=== PATIENT | female | born 1985 ===

== ENCOUNTER 2017-10-26 00:14 | Inpatient (IN) | payer BC ==
[2017-10-26] MEDS ORDERED: Misoprostol 25 MCG (1/4 of 100 MCG) Tab ONE (06:53)
--- NOTE | 2017-10-26 08:06 | PCM.LDHP ---
L&D History of Present Illness - General Date of Service: 10/26/17 Admit Problem/Dx: Admission Diagnosis/Problem Admission Diagnosis/Problem Source of Information: Patient History Limitations: Reports: No Limitations - History of Present Illness Introduction:: 32-year-old 001 EBONI 10/28/17 estimated gestational age 39 weeks 5 days admitted for induction of labor. GBS negative. No history of MRSA. Previous LEEP in 2010. Tonsillectomy and 86. History of moderate dysplasia and cervix in 2010. Allergy to penicillin. Cervix is 2 cm/40%/soft/posterior/-3/4, ultrasound on 04/24/17 EBONI 10/28/1812 weeks 2 days estimated gestational age that time. Blood type A positive airway screen negative hemoglobin hematocrit on 1714.1/42.8 platelets 270,000. Rubella immune serology nonreactive urine culture mixed angela hepatitis B surface antigen and HIV negative. GC probe negative hemoglobin hematocrit on 08/17/1811.9/38.2 platelets 219,000. One hour OB glucose screen 146 3 hour glucose tolerance test 84/128/119/105 within normal limits. GBS negative. Improves with: Reports: None Worsens with: Reports: None Associated Symptoms: Reports: N - Related Data Allergies/Adverse Reactions: Allergies Allergy/AdvReac Type Severity Reaction Status Date / Time penicillin Allergy Hives Verified 04/02/15 19:59 Home Medications: Home Meds Acetaminophen [Tylenol] 650 mg PO Q6H PRN #50 tablet 04/05/15 [Rx] Benzocaine/Menthol [[facility] [place]] 56 gm TOP ASDIRECTED PRN #1 canister 04/05/15 [Rx] Docusate Sodium [Colace] 100 mg PO BID PRN #50 cap 04/05/15 [Rx] Ibuprofen [Motrin] 200 - 800 mg PO Q6H PRN #50 tablet 04/05/15 [Rx] Simethicone 80 mg PO Q4H PRN #0 tab.chew 04/05/15 [Rx] Past Medical History Other HEENT History: wears glasses : 2 Para: 1 (1001) LMP (Approximate): - Past Surgical History Other Female Surgeries/Procedures: LEEP procedure Social & Family History - Tobacco Use Smoking Status *Q: Never Smoker Second Hand Smoke Exposure: No - Recreational Drug Use Recreational Drug Use: No H&P Review of Systems - Review of Systems: Review Of Systems: See Below General: Reports: No Symptoms HEENT: Reports: No Symptoms Pulmonary: Reports: No Symptoms Cardiovascular: Reports: No Symptoms Gastrointestinal: Reports: No Symptoms Genitourinary: Reports: No Symptoms Musculoskeletal: Reports: No Symptoms Skin: Reports: No Symptoms Psychiatric: Reports: No Symptoms Neurological: Reports: No Symptoms Hematologic/Lymphatic: Reports: No Symptoms Immunologic: Reports: No Symptoms L&D Exam - Exam Exam: See Below - OB Specific Fundal Height In cm: 38 Movement: Active Heart Tones: Present Heart Tones per Min: 135 Heart Rate (FHR) Variability: Moderate (6-25 bmp) Presentation: Vertex - Joshi Score Joshi Score Cervix Position: Posterior Joshi Score Consistency: Soft Joshi Score Effacement: 31-50% Joshi Score Dilation: 1-2 cm Joshi Score 's Station: -3 Joshi Score Total: 4 - Exam General: Alert, Oriented HEENT: Conjunctiva Clear, Mucosa Moist & [place], PERRLA Neck: Supple, Trachea Midline Lungs: Clear to Auscultation, Normal Respiratory Effort Cardiovascular: Regular Rate, Regular Rhythm GI/Abdominal Exam: Normal Bowel Sounds, Soft, Non-Tender Genitourinary: Normal external exam, Normal bimanual exam, Normal speculum exam Extremities: Normal Inspection, Normal Range of Motion, Non-Tender, No Pedal Edema, Normal Capillary Refill Skin: Warm, Dry, Intact Neurological: Reflexes Equal Bilateral Psychiatric: Alert, Normal Affect, Normal Mood - Problem List (1) 39 weeks gestation of SNOMED Code(s): 60171063 ICD Code: Z3A.39 - 39 WEEKS GESTATION OF Status: Acute Current Visit: Yes Problem List Initiated/Reviewed/Updated: No Assessment/Plan Comment:: Plan induction of labor and delivery.
[2017-10-26] MEDS ORDERED: Ondansetron 4 MG/2 ML SDV IVPUSH PRN (08:21)
[2017-10-26] MEDS ORDERED: Nalbuphine 20 MG/1 ML Amp IVPUSH PRN (08:21)
[2017-10-26] MEDS ORDERED: Sodium Chloride 0.9% 10 ML Syringe FLUSH PRN (08:21)
[2017-10-26] MEDS ORDERED: Oxytocin/Lactated Ringers 10 UNIT/1,000 ML BAG IV SCH ×2 (08:30→16:15)
[2017-10-26] MEDS ORDERED: diphenhydrAMINE 50 MG/ML SDV IVPUSH PRN (09:57)
[2017-10-26] MEDS ORDERED: fentaNYL 100 MCG/2 ML SDV EPIDUR PRN (09:57)
[2017-10-26] MEDS ORDERED: ePHEDrine 50 MG/ML SDV IVPUSH PRN (09:57)
[2017-10-26] MEDS: Misoprostol 25 MCG (1/4 of 100 MCG) Tab VAG SCH ×3 (11:20→20:54)
--- NOTE | 2017-10-26 12:44 | PCM.SN ---
- Free Text/Narrative Note: Cervix 2 cm, 40% effaced, soft, mid-position Vertex -2. Amnitomy clear fluid performed at 1240. T's Cat I before and after amniotomy.
[2017-10-26] MEDS: Lactated Ringers 1,000 ML IV SCH ×5 (14:34→21:58)
[2017-10-26] MEDS: fentaNYL/Bupivacaine in NS PF 2.5 MCG/ML-0.1% 50 ML Syringe EPIDUR SCH ×3 (15:11→22:29)
--- NOTE | 2017-10-26 15:20 | PCM.PREANE ---
Preanesthetic Assessment - Anesthesia/Transfusion/Family Hx Anesthesia History: Prior Anesthesia Without Reaction Family History of Anesthesia Reaction: No Transfusion History: No Prior Transfusion(s) - Review of Systems General: No Symptoms Pulmonary: No Symptoms Cardiovascular: No Symptoms Gastrointestinal: No Symptoms Neurological: No Symptoms Other: Reports: None - Physical Assessment Pulse: 111 O2 Sat by Pulse Oximetry: 97 Respiratory Rate: 18 Blood Pressure: 114/79 Temperature: 36.5 C Vital Signs: Last Vital Signs Temp 36.5 C 10/26/17 08:19 Pulse 111 H 10/26/17 08:19 Resp 18 10/26/17 08:19 BP 114/79 10/26/17 08:19 Pulse Ox Height: 1.7 m Weight: 92.703 kg ASA Class: 2 Mental Status: Alert & Oriented x3 Airway Class: Mallampati = 1 Dentition: Reports: Normal Dentition ROM/Head Extension: Full Lungs: Clear to Auscultation, Normal Respiratory Effort Cardiovascular: Regular Rate, Regular Rhythm - Lab Values: Laboratory Last Values WBC 7.51 K/mm3 (3.98-10.04) 10/26/17 09:24 RBC 3.85 M/mm3 (3.98-5.22) L 10/26/17 09:24 Hgb 12.2 gm/L (11.2-15.7) 10/26/17 09:24 Hct 36.6 % (34.1-44.9) 10/26/17 09:24 MCV 95.1 fl (79.4-94.8) H 10/26/17 09:24 MCH 31.7 pg (25.6-32.2) 10/26/17 09:24 MCHC 33.3 g/dl (32.2-35.5) 10/26/17 09:24 RDW Std Deviation 47.0 fL (36.4-46.3) H 10/26/17 09:24 Plt Count 202 K/mm3 (182-369) 10/26/17 09:24 MPV 10.2 fl (9.4-12.3) 10/26/17 09:24 - Allergies Allergies/Adverse Reactions: Allergies Allergy/AdvReac Type Severity Reaction Status Date / Time penicillin Allergy Hives Verified 04/02/15 19:59 - Anesthesia Plan Pre-Op Medication Ordered: None - Acknowledgements Anesthesia Type Planned: Epidural Pt an Appropriate Candidate for the Planned Anesthesia: Yes Alternatives and Risks of Anesthesia Discussed w Pt/Guardian: Yes Pt/Guardian Understands and Agrees with Anesthesia Plan: Yes PreAnesthesia Questionnaire - Past Health History Medical/Surgical History: Denies Medical/Surgical History Other HEENT History: wears glasses Gastrointestinal History: Reports: [employer] History: Reports: - Past Surgical History HEENT Surgical History: Reports: Tonsillectomy Other HEENT Surgeries/Procedures: LEEP, [place] teeth Other Female Surgeries/Procedures: LEEP procedure - SUBSTANCE USE Smoking Status *Q: Never Smoker Second Hand Smoke Exposure: No Recreational Drug Use History: No - HOME MEDS Home Medications: Home Meds PNV95/Ferrous Fumarate/FA [ Tablet] 1 each PO DAILY 10/26/17 [History] - CURRENT (IN HOUSE) MEDS Current Meds: Current Medications Diphenhydramine HCl (Benadryl) 25 mg IVPUSH Q6H PRN PRN Reason: Itching Ephedrine Sulfate (Ephedrine Sulfate) 5 mg IVPUSH ASDIRECTED PRN PRN Reason: HYPOTENTSION Fentanyl (Sublimaze) 100 mcg EPIDUR Q3H PRN PRN Reason: PAIN Last Admin: 10/26/17 15:11 Dose: 100 mcg Fentanyl/Bupivacaine HCl (Fentanyl/Bupivacaine/Ns 2.5 Mcg-0.1% 50 Ml) 50 ml EPIDUR ASDIRECTED [facility] Last Admin: 10/26/17 15:11 Dose: 50 ml Lactated Ringer's (Ringers, Lactated) 1,000 mls @ 100 mls/hr IV ASDIRECTED [facility] Last Admin: 10/26/17 14:34 Dose: 999 mls/hr Oxytocin/Lactated Ringer's (Pitocin In Lr 10 Units/1,000 Ml) 10 unit in 1,000 mls @ 500 mls/hr IV .CONTINUOUS [facility] Misoprostol (Cytotec) 25 mcg VAG Q3H [facility] Last Admin: 10/26/17 11:20 Dose: 25 mcg Nalbuphine HCl (Nubain) 10 mg IVPUSH Q2H PRN PRN Reason: Pain (moderate 4-6) Ondansetron HCl (Zofran) 4 mg IVPUSH Q4H PRN PRN Reason: Nausea/Vomiting Sodium Chloride (Saline Flush) 10 ml FLUSH ASDIRECTED PRN PRN Reason: Keep Vein Open Discontinued Medications Misoprostol (Cytotec) Confirm Administered Dose 25 mcg .ROUTE .STK-MED ONE Stop: 10/26/17 06:54 Last Admin: 10/26/17 07:55 Dose: 25 mcg
--- NOTE | 2017-10-26 16:27 | PCM.SN ---
- Free Text/Narrative Note: Cervix 2-3, 50, soft, mid, vertex -3, pitocin started at 1600 and after epidural was placed.
--- NOTE | 2017-10-27 00:39 | PCM.DEL ---
L & D Note - General Info Date of Service: 10/27/17 Mother's Due Date: 10/28/17 - Delivery Note Labor: Augmented by ARM, Augmented by Oxytocin Cervical Ripening Method: Misoprostil (25 mcg x2) Delivery Outcome: Livebirth (Female liveborn Thursday10/27/17 at 0015 hours LOP under epidural anesthesia over no episiotomy with second-degree laceration weight 3270 g/7 pounds 3.3 ounces Apgars 7/9) Delivery Method: Spontaneous Vaginal Delivery-Single Delivery Mode: Spontaneous Type of Forceps Used: NA Presentation: Left Occiput Posterior (LOP) Nuchal Cord: None Prep: Povidone-Iodine (Betadine Anesthesia Type: Epidural Amniotic Fluid Description: Clear Episiotomy Type: None Laceration: 2nd Degree (Midline) Suture type: Other (3-0 Monocryl 2) Suture size: 3-0 Placenta: Intact, Spontaneous (Thursday10/27/17 at 0018 hours central cord insertion intact examined discarded) Cord: 3 Vessels Estimated Blood Loss: 250 Resuscitation Needed: No [place]: Suctioned, Bulb Syringe, Stimulated, Warmed, [place] Used, Warmer Used Provider: Melo Rodriguez Score 1 min: 7 Score 5 min: 9 - Patient Data Vitals - Most Recent: Last Vital Signs Temp 97.7 F 10/26/17 15:20 Pulse 111 H 10/26/17 15:20 Resp 18 10/26/17 15:20 BP 114/79 10/26/17 15:20 Pulse Ox 97 10/26/17 15:20 Weight - Most Recent: 204 lb 6 oz I&O - Last 24 Hours: Intake & Output 10/26/17 10/26/17 10/27/17 14:59 22:59 06:59 Intake Total 120 Balance 120 Lab Results Last 24 Hours: Laboratory Results - last 24 hr 10/26/17 Range/Units 09:24 WBC 7.51 (3.98-10.04) K/mm3 RBC 3.85 L (3.98-5.22) M/mm3 Hgb 12.2 (11.2-15.7) gm/L Hct 36.6 (34.1-44.9) % MCV 95.1 H (79.4-94.8) fl MCH 31.7 (25.6-32.2) pg MCHC 33.3 (32.2-35.5) g/dl RDW Std Deviation 47.0 H (36.4-46.3) fL Plt Count 202 (182-369) K/mm3 MPV 10.2 (9.4-12.3) fl Med Orders - Current: Current Medications Diphenhydramine HCl (Benadryl) 25 mg IVPUSH Q6H PRN PRN Reason: Itching Ephedrine Sulfate (Ephedrine Sulfate) 5 mg IVPUSH ASDIRECTED PRN PRN Reason: HYPOTENTSION Fentanyl (Sublimaze) 100 mcg EPIDUR Q3H PRN PRN Reason: PAIN Last Admin: 10/26/17 15:11 Dose: 100 mcg Fentanyl/Bupivacaine HCl (Fentanyl/Bupivacaine/Ns 2.5 Mcg-0.1% 50 Ml) 50 ml EPIDUR ASDIRECTED [facility] Last Admin: 10/26/17 22:29 Dose: 50 ml Lactated Ringer's (Ringers, Lactated) 1,000 mls @ 100 mls/hr IV ASDIRECTED [facility] Last Admin: 10/26/17 21:58 Dose: 999 mls/hr Oxytocin/Lactated Ringer's (Pitocin In Lr 10 Units/1,000 Ml) 10 unit in 1,000 mls @ 500 mls/hr IV .CONTINUOUS [facility] Oxytocin/Lactated Ringer's (Pitocin In Lr 10 Units/1,000 Ml) 10 unit in 1,000 mls @ 12 mls/hr IV TITRATE [facility]; Protocol Last Titration: 10/26/17 20:54 Dose: 10 munits/min, 60 mls/hr Misoprostol (Cytotec) 25 mcg VAG Q3H [facility] Last Admin: 10/26/17 20:54 Dose: Not Given Nalbuphine HCl (Nubain) 10 mg IVPUSH Q2H PRN PRN Reason: Pain (moderate 4-6) Ondansetron HCl (Zofran) 4 mg IVPUSH Q4H PRN PRN Reason: Nausea/Vomiting Sodium Chloride (Saline Flush) 10 ml FLUSH ASDIRECTED PRN PRN Reason: Keep Vein Open Discontinued Medications Misoprostol (Cytotec) Confirm Administered Dose 25 mcg .ROUTE .STK-MED ONE Stop: 10/26/17 06:54 Last Admin: 10/26/17 07:55 Dose: 25 mcg - Problem List & Annotations (1) 39 weeks gestation of SNOMED Code(s): 37572795 Code(s): Z3A.39 - 39 WEEKS GESTATION OF Status: Acute Current Visit: Yes (2) Occiput posterior presentation of fetus SNOMED Code(s): 60256975 Code(s): O64.0XX0 - OBSTRUCTED LABOR DUE TO INCMPL ROTATION OF HEAD, UNSP Status: Acute Current Visit: Yes Qualifiers: Fetus number: single or unspecified fetus Qualified Code(s): O64.0XX0 - Obstructed labor due to incomplete rotation of head, not applicable or unspecified (3) Second degree laceration of perineum, delivered, current hospitalization SNOMED Code(s): 796870944 Code(s): O70.1 - SECOND DEGREE PERINEAL LACERATION DURING DELIVERY Status: Acute Current Visit: No - Problem List Review Problem List Initiated/Reviewed/Updated: No - My Orders Last 24 Hours: My Active Orders 10/26/17 08:21 Nalbuphine [Nubain] 10 mg IVPUSH Q2H PRN Ondansetron [Zofran] 4 mg IVPUSH Q4H PRN Sodium Chloride 0.9% [Saline Flush] 10 ml FLUSH ASDIRECTED PRN Resuscitation Status Routine 10/26/17 08:22 Activity as Tolerated [RC] PFP Communication Order [RC] ASDIRECTED Heart Tones [RC] ASDIRECTED Notify Provider [RC] PFP Notify Provider [RC] PRN Peripheral IV Care [RC] . DIRECTED Vital Signs [RC] PER UNIT ROUTINE Electronic Heart Tones Ext w TOCO [WOMSER] Routine Electronic Heart Tones Internal [WOMSER] Per Unit Routine Peripheral IV Insertion Adult [OM.PC] Routine 10/26/17 08:30 Lactated Ringers [Ringers, Lactated] 1,000 ml IV ASDIRECTED Misoprostol [Cytotec] 25 mcg VAG Q3H Oxytocin/Lactated Ringers [Pitocin in LR 10 Units/1,000 ML] 10 unit in 1,000 ml IV .CONTINUOUS 10/26/17 16:15 Oxytocin/Lactated Ringers [Pitocin in LR 10 Units/1,000 ML] 10 unit in 1,000 ml IV TITRATE 10/26/17 Lunch Regular Diet [DIET] - Plan Plan:: Plan induction of labor and delivery.
[2017-10-27] MEDS ORDERED: Acetaminophen 325 MG Tab PO PRN (00:47)
[2017-10-27] MEDS ORDERED: Docusate Sodium 100 MG Cap PO PRN (00:47)
[2017-10-27] MEDS ORDERED: Bupivacaine 0.25% 10 ML SDV ONE (01:00)
[2017-10-27] MEDS ORDERED: Benzocaine/Menthol 20%-0.5% Spray 56 GM Canister TOP PRN (02:27)
[2017-10-27] MEDS ORDERED: Witch Hazel Medicated Pads 100/Jar TOP PRN (02:27)
[2017-10-27] MEDS: Ibuprofen 600 MG Tab PO PRN ×4 (02:34→16:17)
--- NOTE | 2017-10-27 07:56 | PCM48HPAN ---
Post Anesthesia Note - EVALUATION WITHIN 48HRS OF ANESTHETIC Vital Signs in Normal Range: Yes Patient Participated in Evaluation: Yes Respiratory Function Stable: Yes Airway Patent: Yes Cardiovascular Function Stable: Yes Hydration Status Stable: Yes Pain Control Satisfactory: Yes Nausea and Vomiting Control Satisfactory: Yes Mental Status Recovered: Yes (no complaints- with baby) Pulse Rate: 65 Resp Rate: 16 Temperature: 98.8 F Blood Pressure: 102/64
[2017-10-27] MEDS ORDERED: Prenatal Multivitamin with Calcium/Folic Acid/Iron Tab PO SCH (09:00)
[2017-10-28 06:09] VITALS: BP 104/59
--- NOTE | 2017-10-28 08:12 | PCM.DCSUM1 ---
Discharge Summary - Hospital Course Free Text/Narrative:: [facility] LIVE L/D Delivery Note Patient Name: SHERI VILLASEÑOR Date of : 89 Patient Status: Inpatient Attending Provider: Melo Rodriguez Date: 10/27/17 00:33 Initialization Date: 10/27/17 00:33 L & D Note - General Info Date of Service: 10/27/17 Mother's Due Date: 10/28/17 - Delivery Note Labor: Augmented by ARM, Augmented by Oxytocin Cervical Ripening Method: Misoprostil (25 mcg x2) Delivery Outcome: Livebirth (Female liveborn Thursday10/27/17 at 0015 hours LOP under epidural anesthesia over no episiotomy with second-degree laceration weight 3270 g/7 pounds 3.3 ounces Apgars 7/9) Delivery Method: Spontaneous Vaginal Delivery-Single Delivery Mode: Spontaneous Type of Forceps Used: NA Presentation: Left Occiput Posterior (LOP) Nuchal Cord: None Prep: Povidone-Iodine (Betadine Anesthesia Type: Epidural Amniotic Fluid Description: Clear Episiotomy Type: None Laceration: 2nd Degree (Midline) Suture type: Other (3-0 Monocryl 2) Suture size: 3-0 Placenta: Intact, Spontaneous (Thursday10/27/17 at 0018 hours central cord insertion intact examined discarded) Cord: 3 Vessels Estimated Blood Loss: 250 Resuscitation Needed: No : Suctioned, Bulb Syringe, Stimulated, Warmed, [place] Used, Warmer Used Provider: Melo Rodriguez Score 1 min: 7 Score 5 min: 9 - Patient Data Vitals - Most Recent: Last Vital Signs Temp 97.7 F 10/26/17 15:20 Pulse 111 H 10/26/17 15:20 Resp 18 10/26/17 15:20 BP 114/79 10/26/17 15:20 Pulse Ox 97 10/26/17 15:20 Weight - Most Recent: 204 lb 6 oz I&O - Last 24 Hours: Intake & Output 10/26/17 10/26/17 10/27/17 14:59 22:59 06:59 Intake Total 120 Balance 120 Lab Results Last 24 Hours: Laboratory Results - last 24 hr 10/26/17 Range/Units 09:24 WBC 7.51 (3.98-10.04) K/mm3 RBC 3.85 L (3.98-5.22) M/mm3 Hgb 12.2 (11.2-15.7) gm/L Hct 36.6 (34.1-44.9) % MCV 95.1 H (79.4-94.8) fl MCH 31.7 (25.6-32.2) pg MCHC 33.3 (32.2-35.5) g/dl RDW Std Deviation 47.0 H (36.4-46.3) fL Plt Count 202 (182-369) K/mm3 MPV 10.2 (9.4-12.3) fl Med Orders - Current: Current Medications Diphenhydramine HCl (Benadryl) 25 mg IVPUSH Q6H PRN PRN Reason: Itching Ephedrine Sulfate (Ephedrine Sulfate) 5 mg IVPUSH ASDIRECTED PRN PRN Reason: HYPOTENTSION Fentanyl (Sublimaze) 100 mcg EPIDUR Q3H PRN PRN Reason: PAIN Last Admin: 10/26/17 15:11 Dose: 100 mcg Fentanyl/Bupivacaine HCl (Fentanyl/Bupivacaine/Ns 2.5 Mcg-0.1% 50 Ml) 50 ml EPIDUR ASDIRECTED RODRIGO Last Admin: 10/26/17 22:29 Dose: 50 ml Lactated Ringer's (Ringers, Lactated) 1,000 mls @ 100 mls/hr IV ASDIRECTED RODRIGO Last Admin: 10/26/17 21:58 Dose: 999 mls/hr Oxytocin/Lactated Ringer's (Pitocin In Lr 10 Units/1,000 Ml) 10 unit in 1,000 mls @ 500 mls/hr IV .CONTINUOUS RODRIGO Oxytocin/Lactated Ringer's (Pitocin In Lr 10 Units/1,000 Ml) 10 unit in 1,000 mls @ 12 mls/hr IV TITRATE RODRIGO; Protocol Last Titration: 10/26/17 20:54 Dose: 10 munits/min, 60 mls/hr Misoprostol (Cytotec) 25 mcg VAG Q3H RODRIGO Last Admin: 10/26/17 20:54 Dose: Not Given Nalbuphine HCl (Nubain) 10 mg IVPUSH Q2H PRN PRN Reason: Pain (moderate 4-6) Ondansetron HCl (Zofran) 4 mg IVPUSH Q4H PRN PRN Reason: Nausea/Vomiting Sodium Chloride (Saline Flush) 10 ml FLUSH ASDIRECTED PRN PRN Reason: Keep Vein Open Discontinued Medications Misoprostol (Cytotec) Confirm Administered Dose 25 mcg .ROUTE .STK-MED ONE Stop: 10/26/17 06:54 Last Admin: 10/26/17 07:55 Dose: 25 mcg - Problem List & Annotations (1) 39 weeks gestation of SNOMED Code(s): 98260081 Code(s): Z3A.39 - 39 WEEKS GESTATION OF Status: Acute Current Visit: Yes (2) Occiput posterior presentation of fetus SNOMED Code(s): 08384774 Code(s): O64.0XX0 - OBSTRUCTED LABOR DUE TO INCMPL ROTATION OF HEAD, UNSP Status: Acute Current Visit: Yes Qualifiers: Fetus number: single or unspecified fetus Qualified Code(s): O64.0XX0 - Obstructed labor due to incomplete rotation of head, not applicable or unspecified (3) Second degree laceration of perineum, delivered, current hospitalization SNOMED Code(s): 191969697 Code(s): O70.1 - SECOND DEGREE PERINEAL LACERATION DURING DELIVERY Status: Acute Current Visit: No - Problem List Review Problem List Initiated/Reviewed/Updated: No - My Orders Last 24 Hours: My Active Orders 10/26/17 08:21 Nalbuphine [Nubain] 10 mg IVPUSH Q2H PRN Ondansetron [Zofran] 4 mg IVPUSH Q4H PRN Sodium Chloride 0.9% [Saline Flush] 10 ml FLUSH ASDIRECTED PRN Resuscitation Status Routine 10/26/17 08:22 Activity as Tolerated [RC] PFP Communication Order [RC] ASDIRECTED Heart Tones [RC] ASDIRECTED Notify Provider [RC] PFP Notify Provider [RC] PRN Peripheral IV Care [RC] . DIRECTED Vital Signs [RC] PER UNIT ROUTINE Electronic Heart Tones Ext w TOCO [WOMSER] Routine Electronic Heart Tones Internal [WOMSER] Per Unit Routine Peripheral IV Insertion Adult [OM.PC] Routine 10/26/17 08:30 Lactated Ringers [Ringers, Lactated] 1,000 ml IV ASDIRECTED Misoprostol [Cytotec] 25 mcg VAG Q3H Oxytocin/Lactated Ringers [Pitocin in LR 10 Units/1,000 ML] 10 unit in 1,000 ml IV .CONTINUOUS 10/26/17 16:15 Oxytocin/Lactated Ringers [Pitocin in LR 10 Units/1,000 ML] 10 unit in 1,000 ml IV TITRATE 10/26/17 Lunch Regular Diet [DIET] - Plan Plan:: Plan induction of labor and delivery. HPI Initial Comments: [facility] LIVE L/D Delivery Note Patient Name: SHERI VILLASEÑOR Date of : 89 Patient Status: Inpatient Attending Provider: Melo Rodriguez Date: 10/27/17 00:33 Initialization Date: 10/27/17 00:33 L & D Note - General Info Date of Service: 10/27/17 Mother's Due Date: 10/28/17 - Delivery Note Labor: Augmented by ARM, Augmented by Oxytocin Cervical Ripening Method: Misoprostil (25 mcg x2) Delivery Outcome: Livebirth (Female liveborn Thursday10/27/17 at 0015 hours LOP under epidural anesthesia over no episiotomy with second-degree laceration weight 3270 g/7 pounds 3.3 ounces Apgars 7/9) Infant Delivery Method: Spontaneous Vaginal Delivery-Single Infant Delivery Mode: Spontaneous Type of Forceps Used: NA Presentation: Left Occiput Posterior (LOP) Nuchal Cord: None Prep: Povidone-Iodine (Betadine Anesthesia Type: Epidural Amniotic Fluid Description: Clear Episiotomy Type: None Laceration: 2nd Degree (Midline) Suture type: Other (3-0 Monocryl 2) Suture size: 3-0 Placenta: Intact, Spontaneous (Thursday10/27/17 at 0018 hours central cord insertion intact examined discarded) Cord: 3 Vessels Estimated Blood Loss: 250 Resuscitation Needed: No [place]: Suctioned, Bulb Syringe, Stimulated, Warmed, [place] Used, Warmer Used Provider: Melo Rodriguez Score 1 min: 7 Score 5 min: 9 - Patient Data Vitals - Most Recent: Last Vital Signs Temp 97.7 F 10/26/17 15:20 Pulse 111 H 10/26/17 15:20 Resp 18 10/26/17 15:20 BP 114/79 10/26/17 15:20 Pulse Ox 97 10/26/17 15:20 Weight - Most Recent: 204 lb 6 oz I&O - Last 24 Hours: Intake & Output 10/26/17 10/26/17 10/27/17 14:59 22:59 06:59 Intake Total 120 Balance 120 Lab Results Last 24 Hours: Laboratory Results - last 24 hr 10/26/17 Range/Units 09:24 WBC 7.51 (3.98-10.04) K/mm3 RBC 3.85 L (3.98-5.22) M/mm3 Hgb 12.2 (11.2-15.7) gm/L Hct 36.6 (34.1-44.9) % MCV 95.1 H (79.4-94.8) fl MCH 31.7 (25.6-32.2) pg MCHC 33.3 (32.2-35.5) g/dl RDW Std Deviation 47.0 H (36.4-46.3) fL Plt Count 202 (182-369) K/mm3 MPV 10.2 (9.4-12.3) fl Med Orders - Current: Current Medications Diphenhydramine HCl (Benadryl) 25 mg IVPUSH Q6H PRN PRN Reason: Itching Ephedrine Sulfate (Ephedrine Sulfate) 5 mg IVPUSH ASDIRECTED PRN PRN Reason: HYPOTENTSION Fentanyl (Sublimaze) 100 mcg EPIDUR Q3H PRN PRN Reason: PAIN Last Admin: 10/26/17 15:11 Dose: 100 mcg Fentanyl/Bupivacaine HCl (Fentanyl/Bupivacaine/Ns 2.5 Mcg-0.1% 50 Ml) 50 ml EPIDUR ASDIRECTED RODRIGO Last Admin: 10/26/17 22:29 Dose: 50 ml Lactated Ringer's (Ringers, Lactated) 1,000 mls @ 100 mls/hr IV ASDIRECTED RODRIGO Last Admin: 10/26/17 21:58 Dose: 999 mls/hr Oxytocin/Lactated Ringer's (Pitocin In Lr 10 Units/1,000 Ml) 10 unit in 1,000 mls @ 500 mls/hr IV .CONTINUOUS RODRIGO Oxytocin/Lactated Ringer's (Pitocin In Lr 10 Units/1,000 Ml) 10 unit in 1,000 mls @ 12 mls/hr IV TITRATE RODRIGO; Protocol Last Titration: 10/26/17 20:54 Dose: 10 munits/min, 60 mls/hr Misoprostol (Cytotec) 25 mcg VAG Q3H RODRIGO Last Admin: 10/26/17 20:54 Dose: Not Given Nalbuphine HCl (Nubain) 10 mg IVPUSH Q2H PRN PRN Reason: Pain (moderate 4-6) Ondansetron HCl (Zofran) 4 mg IVPUSH Q4H PRN PRN Reason: Nausea/Vomiting Sodium Chloride (Saline Flush) 10 ml FLUSH ASDIRECTED PRN PRN Reason: Keep Vein Open Discontinued Medications Misoprostol (Cytotec) Confirm Administered Dose 25 mcg .ROUTE .[facility]-MED ONE Stop: 10/26/17 06:54 Last Admin: 10/26/17 07:55 Dose: 25 mcg - Problem List & Annotations (1) 39 weeks gestation of SNOMED Code(s): 34943618 Code(s): Z3A.39 - 39 WEEKS GESTATION OF Status: Acute Current Visit: Yes (2) Occiput posterior presentation of fetus SNOMED Code(s): 94346547 Code(s): O64.0XX0 - OBSTRUCTED LABOR DUE TO INCMPL ROTATION OF HEAD, UNSP Status: Acute Current Visit: Yes Qualifiers: Fetus number: single or unspecified fetus Qualified Code(s): O64.0XX0 - Obstructed labor due to incomplete rotation of head, not applicable or unspecified (3) Second degree laceration of perineum, delivered, current hospitalization SNOMED Code(s): 947306704 Code(s): O70.1 - SECOND DEGREE PERINEAL LACERATION DURING DELIVERY Status: Acute Current Visit: No - Problem List Review Problem List Initiated/Reviewed/Updated: No - My Orders Last 24 Hours: My Active Orders 10/26/17 08:21 Nalbuphine [Nubain] 10 mg IVPUSH Q2H PRN Ondansetron [Zofran] 4 mg IVPUSH Q4H PRN Sodium Chloride 0.9% [Saline Flush] 10 ml FLUSH ASDIRECTED PRN Resuscitation Status Routine 10/26/17 08:22 Activity as Tolerated [RC] PFP Communication Order [RC] ASDIRECTED Heart Tones [RC] ASDIRECTED Notify Provider [RC] PFP Notify Provider [RC] PRN Peripheral IV Care [RC] . DIRECTED Vital Signs [RC] PER UNIT ROUTINE Electronic Heart Tones Ext w TOCO [WOMSER] Routine Electronic Heart Tones Internal [WOMSER] Per Unit Routine Peripheral IV Insertion Adult [OM.PC] Routine 10/26/17 08:30 Lactated Ringers [Ringers, Lactated] 1,000 ml IV ASDIRECTED Misoprostol [Cytotec] 25 mcg VAG Q3H Oxytocin/Lactated Ringers [Pitocin in LR 10 Units/1,000 ML] 10 unit in 1,000 ml IV .CONTINUOUS 10/26/17 16:15 Oxytocin/Lactated Ringers [Pitocin in LR 10 Units/1,000 ML] 10 unit in 1,000 ml IV TITRATE 10/26/17 Lunch Regular Diet [DIET] - Plan Plan:: Plan induction of labor and delivery. Brief History: [facility] LIVE . L/D Delivery Note. Patient Name: SHERI VILLASEÑOR Record Number: [id number]. Date of : Patient Status: Inpatient. Attending Provider: Melo Rodriguez Number: [id number]. Date: 10/27/17 00:33Initialization Date: 10/27/17 00:33. L & D Note. - General Info. Date of Service: 10/27/17. Mother's Due Date: 10/28/17. - Delivery Note. Labor: Augmented by ARM, Augmented by Oxytocin. Cervical Ripening Method: Misoprostil (25 mcg x2). Delivery Outcome: Livebirth (Female liveborn Thursday10/27/17 at 0015 hours LOP under epidural anesthesia over no episiotomy with second-degree laceration weight 3270 g/7 pounds 3.3 ounces Apgars 7/9). Infant Delivery Method: Spontaneous Vaginal Delivery- Single. Delivery Mode: Spontaneous. Type of Forceps Used: NA. Presentation: Left Occiput Posterior (LOP). Nuchal Cord: None. Prep: Povidone- Iodine (Betadine. Anesthesia Type: Epidural. Amniotic Fluid Description: Clear. Episiotomy Type: None. Laceration: 2nd Degree (Midline). Suture type: Other (3-0 Monocryl 2). Suture size: 3-0. Placenta: Intact, Spontaneous ( Thursday10/27/17 at 0018 hours central cord insertion intact examined discarded) . Cord: 3 Vessels. Estimated Blood Loss: 250. Resuscitation Needed: No. : Suctioned, Bulb Syringe, Stimulated, Warmed, [place] Used, Warmer Used. Provider: Melo Rodriguez. Score 1 min: 7. Score 5 min: 9. - Patient Data. Vitals - Most Recent: Last Vital Signs. Temp 97.7 F 10/26/17 15:20. Pulse 111 H 10/26/17 15:20. Resp 18 10/26/17 15: 20. BP 114/79 10/26/17 15:20. Pulse Ox 97 10/26/17 15:20. Weight - Most Recent: 204 lb 6 oz. I&O - Last 24 Hours: Intake & Output. 10/27/1803/ /. 14:5922:5906:59. Intake [id number]. [id number]. Lab Results Last 24 Hours: Laboratory Results - last 24 hr. 10/26/17Range/Units. 09:24. WBC 7.51 (3.98-10.04) K/mm3. RBC 3.85 L (3.98-5.22) M/mm3. Hgb 12.2 (11.2-15.7) gm/L. Hct 36.6 (34.1-44.9) %. MCV 95.1 H (79.4-94.8) fl. MCH 31.7 (25.6- 32.2) pg. MCHC 33.3 (32.2-35.5) g/dl. RDW Std Deviation 47.0 H (36.4-46.3) fL. Plt Count 202 (182-369) K/mm3. MPV 10.2 (9.4-12.3) fl. Med Orders - Current: Current Medications. Diphenhydramine HCl (Benadryl) 25 mg IVPUSH Q6H PRN. PRN Reason: Itching. Ephedrine Sulfate (Ephedrine Sulfate) 5 mg IVPUSH ASDIRECTED PRN. PRN Reason: HYPOTENTSION. Fentanyl (Sublimaze) 100 mcg EPIDUR Q3H PRN. PRN Reason: PAIN. Last Admin: 10/26/17 15:11 Dose: 100 mcg. Fentanyl/Bupivacaine HCl (Fentanyl/Bupivacaine/Ns 2.5 Mcg-0.1% 50 Ml) 50 ml EPIDUR ASDIRECTED RODRIGO. Last Admin: 10/26/17 22:29 Dose: 50 ml. Lactated Ringer's (Ringers, Lactated) 1,000 mls @ 100 mls/hr IV ASDIRECTED RODRIGO. Last Admin: 10/26/17 21:58 Dose: 999 mls/hr. Oxytocin/Lactated Ringer's (Pitocin In Lr 10 Units/1,000 Ml) 10 unit in 1,000 mls @ 500 mls/hr IV .CONTINUOUS RODRIGO. Oxytocin/Lactated Ringer's (Pitocin In Lr 10 Units/1,000 Ml) 10 unit in 1, 000 mls @ 12 mls/hr IV TITRATE RODRIGO; Protocol. Last Titration: 10/26/17 20:54 Dose: 10 munits/min, 60 mls/hr. Misoprostol (Cytotec) 25 mcg VAG Q3H RODRIGO. Last Admin: 10/26/17 20:54 Dose: Not Given. Nalbuphine HCl (Nubain) 10 mg IVPUSH Q2H PRN. PRN Reason: Pain (moderate 4-6). Ondansetron HCl (Zofran) 4 mg IVPUSH Q4H PRN. PRN Reason: Nausea/Vomiting. Sodium Chloride (Saline Flush ) 10 ml FLUSH ASDIRECTED PRN. PRN Reason: Keep Vein Open. Discontinued Medications. Misoprostol (Cytotec) Confirm Administered Dose 25 mcg .ROUTE .STK -MED ONE. Stop: 10/26/17 06:54. Last Admin: 10/26/17 07:55 Dose: 25 mcg. - Problem List & Annotations. (1) 39 weeks gestation of . SNOMED Code(s ): 18933798. Code(s): Z3A.39 - 39 WEEKS GESTATION OF Status: Acute Current Visit: Yes. (2) Occiput posterior presentation of fetus. SNOMED Code(s): 23076437. Code(s): O64.0XX0 - OBSTRUCTED LABOR DUE TO INCMPL ROTATION OF HEAD, UNSP Status: Acute Current Visit: Yes. Qualifiers: Fetus number: single or unspecified fetus Qualified Code(s): O64.0XX0 - Obstructed labor due to incomplete rotation of head, not applicable or unspecified. (3) Second degree laceration of perineum, delivered, current hospitalization. SNOMED Code(s): 991171551. Code(s): O70.1 - SECOND DEGREE PERINEAL LACERATION DURING DELIVERY Status: Acute Current Visit: No. - Problem List Review. Problem List Initiated/Reviewed/Updated: No. - My Orders. Last 24 Hours: My Active Orders. 10/26/17 08:21. Nalbuphine [Nubain] 10 mg IVPUSH Q2H PRN. Ondansetron [Zofran] 4 mg IVPUSH Q4H PRN. Sodium Chloride 0.9% [Saline Flush ] 10 ml FLUSH ASDIRECTED PRN. Resuscitation Status Routine. 10/26/17 08:22. Activity as Tolerated [RC] PFP. Communication Order [RC] ASDIRECTED. Heart Tones [RC] ASDIRECTED. Notify Provider [RC] PFP. Notify Provider [RC] PRN. Peripheral IV Care [RC] . DIRECTED. Vital Signs [RC] PER UNIT ROUTINE. Electronic Heart Tones Ext w TOCO [WOMSER] Routine. Electronic Heart Tones Internal [WOMSER] Per Unit Routine. Peripheral IV Insertion Adult [ OM.PC] Routine. 10/26/17 08:30. Lactated Ringers [Ringers, Lactated] 1,000 ml IV ASDIRECTED. Misoprostol [Cytotec] 25 mcg VAG Q3H. Oxytocin/Lactated Ringers [Pitocin in LR 10 Units/1,000 ML] 10 unit in 1,000 ml IV .CONTINUOUS. 10/26/17 16:15. Oxytocin/Lactated Ringers [Pitocin in LR 10 Units/1,000 ML] 10 unit in 1,000 ml IV TITRATE. 10/26/17 Lunch. Regular Diet [DIET]. - Plan. Plan:: Plan induction of labor and delivery. - Discharge Data Discharge Date: 10/28/17 Discharge Disposition: Home, Self-Care 01 Condition: Good - Discharge Diagnosis/Problem(s) (1) 39 weeks gestation of SNOMED Code(s): 68814130 ICD Code: Z3A.39 - 39 WEEKS GESTATION OF Status: Acute Current Visit: Yes (2) Occiput posterior presentation of fetus SNOMED Code(s): 59353388 ICD Code: O64.0XX0 - OBSTRUCTED LABOR DUE TO INCMPL ROTATION OF HEAD, UNSP Status: Acute Current Visit: Yes Qualifiers: Fetus number: single or unspecified fetus Qualified Code(s): O64.0XX0 - Obstructed labor due to incomplete rotation of head, not applicable or unspecified (3) Second degree laceration of perineum, delivered, current hospitalization SNOMED Code(s): 648028410 ICD Code: O70.1 - SECOND DEGREE PERINEAL LACERATION DURING DELIVERY Status : Acute Current Visit: No - Patient Summary/Data Complications: none Consults: none Hospital Course: uneventful - Patient Instructions Diet: Regular Diet as Tolerated Driving: Do Not Drive Showering/Bathing: November Shower Notify Provider of: Fever, Increased Pain, Swelling and Redness, Drainage, Nausea and/or Vomiting - Discharge Plan Home Medications: Home Meds PNV95/Ferrous Fumarate/FA [ Tablet] 1 each PO DAILY 10/26/17 [History] Acetaminophen [Tylenol] 650 mg PO Q4H PRN tablet 10/28/17 [Rx] Benzocaine/Menthol [Dermoplast Pain Relief [place]] 1 spray TOP ASDIRECTED PRN canister 10/28/17 [Rx] Docusate Sodium [Colace] 100 mg PO BID PRN cap 10/28/17 [Rx] Ibuprofen [IJD: Ibuprofen] 600 mg PO Q4H PRN tablet 10/28/17 [Rx] Patient Handouts: What You Need to Know About Formula Feeding, Home Care Instructions for Mom Referrals: Melo Rodriguez MD [Physician] - (Has appointment to see me on 11/18/17.) - Discharge Summary/Plan Comment DC Time >30 min.: No - Patient Data Vitals - Most Recent: Last Vital Signs Temp 98.1 F 10/28/17 05:16 Pulse 54 L 10/28/17 05:16 Resp 16 10/28/17 05:16 BP 104/59 L 10/28/17 05:16 Pulse Ox 99 10/28/17 05:16 Weight - Most Recent: 204 lb 6 oz I&O - Last 24 hours: Intake & Output 10/27/17 10/28/17 10/28/17 22:59 06:59 14:59 Intake Total 0 Balance 0 Med Orders - Current: Current Medications Acetaminophen (Tylenol) 650 mg PO Q4H PRN PRN Reason: mild pain or fever Benzocaine/Menthol (Dermoplast Pain Relief [place]) 0 gm TOP ASDIRECTED PRN PRN Reason: Perineal Comfort Measure Last Admin: 10/27/17 02:34 Dose: 1 applic Docusate Sodium (Colace) 100 mg PO BID PRN PRN Reason: Constipation Ibuprofen (Motrin) 600 mg PO Q4H PRN PRN Reason: Mild pain or fever Last Admin: 10/27/17 16:17 Dose: 600 mg Prenat Multivit/[place]/Iron/Folic Ac ( Plus Iron) 1 each PO DAILY [facility] Beatriz Delarosa (Tucks) 1 pad TOP ASDIRECTED PRN PRN Reason: Hemorrhoids Last Admin: 10/27/17 02:33 Dose: 1 pad Discontinued Medications Diphenhydramine HCl (Benadryl) 25 mg IVPUSH Q6H PRN PRN Reason: Itching Ephedrine Sulfate (Ephedrine Sulfate) 5 mg IVPUSH ASDIRECTED PRN PRN Reason: HYPOTENTSION Fentanyl (Sublimaze) 100 mcg EPIDUR Q3H PRN PRN Reason: PAIN Last Admin: 10/26/17 15:11 Dose: 100 mcg Fentanyl/Bupivacaine HCl (Fentanyl/Bupivacaine/Ns 2.5 Mcg-0.1% 50 Ml) 50 ml EPIDUR ASDIRECTED [facility] Last Admin: 10/26/17 22:29 Dose: 50 ml Lactated Ringer's (Ringers, Lactated) 1,000 mls @ 100 mls/hr IV ASDIRECTED [facility] Last Admin: 10/26/17 21:58 Dose: 999 mls/hr Oxytocin/Lactated Ringer's (Pitocin In Lr 10 Units/1,000 Ml) 10 unit in 1,000 mls @ 500 mls/hr IV .CONTINUOUS RODRIGO Oxytocin/Lactated Ringer's (Pitocin In Lr 10 Units/1,000 Ml) 10 unit in 1,000 mls @ 12 mls/hr IV TITRATE RODRIGO; Protocol Last Titration: 10/26/17 20:54 Dose: 10 munits/min, 60 mls/hr Misoprostol (Cytotec) Confirm Administered Dose 25 mcg .ROUTE .K-MED ONE Stop: 10/26/17 06:54 Last Admin: 10/26/17 07:55 Dose: 25 mcg Misoprostol (Cytotec) 25 mcg VAG Q3H RODRIGO Last Admin: 10/26/17 20:54 Dose: Not Given Nalbuphine HCl (Nubain) 10 mg IVPUSH Q2H PRN PRN Reason: Pain (moderate 4-6) Ondansetron HCl (Zofran) 4 mg IVPUSH Q4H PRN PRN Reason: Nausea/Vomiting Sodium Chloride (Saline Flush) 10 ml FLUSH ASDIRECTED PRN PRN Reason: Keep Vein Open
== END 2017-10-28 09:00 | disposition home or self-care (01) | DRG 560 ==
LOC: JD.OB 00:14 → OBSVTOIN 10-27 00:14 → JD.OB 10-27 00:15
PROVIDERS: ADMIT Obstetrics & Gynecology; ATTEND Obstetrics & Gynecology
PROC: 10907ZC Drainage of Amniotic Fluid, Therapeutic from Products of Conception, Via Natural or Artificial Opening (ICD-10-PCS; 2017-10-26)
PROC: 00HU33Z Insertion of Infusion Device into Spinal Canal, Percutaneous Approach (ICD-10-PCS; 2017-10-26)
PROC: 3E0R3BZ Introduction of Anesthetic Agent into Spinal Canal, Percutaneous Approach (ICD-10-PCS; 2017-10-26)
PROC: 10E0XZZ Delivery of Products of Conception, External Approach (ICD-10-PCS; principal; 2017-10-27)
PROC: 3E0P7VZ Introduction of Hormone into Female Reproductive, Via Natural or Artificial Opening (ICD-10-PCS; 2017-10-27)
PROC: 0KQM0ZZ Repair Perineum Muscle, Open Approach (ICD-10-PCS; 2017-10-27)
DX: O64.0XX0 Obstructed labor due to incomplete rotation of fetal head, not applicable or unspecified (principal); O70.1 Second degree perineal laceration during delivery; Z3A.39 39 weeks gestation of pregnancy; Z37.0 Single live birth; Z88.0 Allergy status to penicillin
CPT/HCPCS: 36415; 51702; 59025; 59300; 59409; 85027; A9270-GY; J2590; J3010; J7120